=== PATIENT | male | born 1985 | race Caucasian/White ===

== ENCOUNTER 2016-08-29 17:45 | Emergency (ER) | payer SELFPAY ==
[2016-08-29] MEDS ORDERED: IBUPROFEN 800 MG TABLET PO ONE (18:06)
--- NOTE | 2016-08-29 18:06 | ER Document Report ---
ED Medical Screen (RME) - General Chief Complaint: Back Pain Stated Complaint: BACK PAIN Notes: was working on the garage this evening and hurt his back pivoting motion, denies crush injury Denies urinary incontinence to incontinence, saddle anesthesia, numbness or tingling in his feet. I have greeted and performed a rapid initial assessment of this patient. A comprehensive ED assessment and evaluation of the patient, analysis of test results and completion of the medical decision making process will be conducted by additional ED providers. TRAVEL OUTSIDE OF THE [place] IN LAST 30 DAYS: No - Related Data Allergies/Adverse Reactions: vancomycin Allergy (Verified 08/29/16 18:04) Past Medical History Past Surgical History: Reports: Hx Appendectomy Physical Exam - Vital signs Vitals: Temp Pulse Resp BP Pulse Ox 98.3 F 114 H 18 132/86 H 97 08/29/16 18:02 08/29/16 18:02 08/29/16 18:02 08/29/16 18:02 08/29/16 18:02 Course - Vital Signs Vital signs: Temp Pulse Resp BP Pulse Ox 98.3 F 114 H 18 132/86 H 97 08/29/16 18:02 08/29/16 18:02 08/29/16 18:02 08/29/16 18:02 08/29/16 18:02
--- NOTE | 2016-08-29 19:46 | ER Document Report ---
ED Neck/Back Problem - General Mode of Arrival: Ambulatory Information source: Patient TRAVEL OUTSIDE OF THE [place] IN LAST 30 DAYS: No - HPI Patient complains to provider of: Pain - Left Mid-Back Onset: This afternoon Where: Other - Garage Onset: Sudden Timing: Still present Exacerbated by: Sitting position - General Chief Complaint: Back Pain Stated Complaint: BACK PAIN Notes: Patient is a 31-year-old male presenting to the emergency department chief complaint back pain onset this afternoon when he was cleaning out his garage and threw a tire. Patient states that he felt his back crackle and pop. Patient states that it hurts to even just sit down. Patient has no other complaints. (NICOLE CHOW) - Related Data Allergies/Adverse Reactions: vancomycin Allergy (Verified 08/29/16 18:04) Past Medical History - General Information source: Patient - Social History Smoking Status: Current Every Day Smoker Cigarette use (# per day): Yes Chew tobacco use (# tins/day): No Frequency of alcohol use: Rare Drug Abuse: Marijuana Occupation: Construction Family History: Reviewed & Not Pertinent, Other - Family history of seizures Patient has suicidal ideation: No Patient has homicidal ideation: No Renal/ Medical History: Reports: Hx Kidney Stones. Denies: Hx Peritoneal Dialysis Infectious Medical History: Reports: Hx Hepatitis - Hep C Past Surgical History: Reports: Hx Appendectomy, Hx Kidney (Renal Surgery) - Cystoscopic laser Review of Systems - Review of Systems Constitutional: No symptoms reported EENT: No symptoms reported Cardiovascular: No symptoms reported Respiratory: No symptoms reported Gastrointestinal: No symptoms reported Genitourinary: No symptoms reported Male Genitourinary: No symptoms reported Musculoskeletal: See HPI, Back pain Skin: No symptoms reported Hematologic/Lymphatic: No symptoms reported Neurological/Psychological: No symptoms reported Physical Exam - General General appearance: Alert - HEENT Head: Normocephalic, Atraumatic Eyes: Normal Pupils: PERRL - Respiratory Respiratory status: No respiratory distress Breath sounds: Normal - Cardiovascular Rhythm: Regular Heart sounds: Normal auscultation Murmur: No - Abdominal Inspection: Normal - Back Back: Tender - Tenderness to palpation over left lumbar paravertebral muscles. - Extremities General upper extremity: Normal inspection General lower extremity: Normal inspection - Neurological Neuro grossly intact: Yes Cognition: Normal Emily Coma Scale Eye Opening: Spontaneous [place] Coma Scale Verbal: Oriented Emily Coma Scale Motor: Obeys Commands Emily Coma Scale Total: 15 Speech: Normal - Psychological Associated symptoms: Normal affect, Normal mood - Skin Skin Temperature: Warm Skin Moisture: Dry Skin Color: Normal - Vital signs Vitals: Temp Pulse Resp BP Pulse Ox 98.3 F 114 H 18 132/86 H 97 08/29/16 18:02 08/29/16 18:02 08/29/16 18:02 08/29/16 18:02 08/29/16 18:02 (RUDOLPH GHOSH) (NICOLE CHOW) Discharge - Discharge Clinical Impression: Acute lumbar back pain Qualifiers: Back pain laterality: left Sciatica presence: without sciatica Qualified Code(s ): M54.5 - Low back pain Additional Instructions: Low Back Pain Three out of every four people will have an episode of disabling back pain during their lifetime. Most commonly the pain is due to straining of the muscles and ligaments in the low back. Usual treatment includes: (1) Rest on a firm surface. Avoid lying on your stomach. (2) Ice pack the painful area. After a few days, gentle heat may be used intermittently to relax the area, or ice packs can be continued. (3) Medication may be needed -- muscle relaxers and antiinflammatory medicines are commonly used. (4) As the back improves, exercises are prescribed to strengthen the back and abdominal muscles. Your doctor will advise you on the proper care for your back at each stage in your recovery. You may be better in a few days -- or healing may take several weeks. If new symptoms of a "herniated disc" (radiation of pain, numbness, or tingling down the back of the leg or weakness in the leg) occur, you should be re-examined. Further testing may be necessary. TAKE MOTRIN OR ALEVE. USE ICE-PACKS TODAY. START MOIST HEAT TOMORROW. FIND A COMFORTABLE WAY TO LAY OR SIT. TAKE THE MEDICATIONS PRESCRIBED. FOLLOW UP WITH A LOCAL MEDICAL DOCTOR IF NOT IMPROVING. RETURN TO THE EMERGENCY ROOM IF ANY NEW OR WORSENING SYMPTOMS. Prescriptions: Cyclobenzaprine HCl [Flexeril 5 mg Tablet] 5 mg PO TID PRN #15 tablet PRN Reason: Oxycodone HCl/Acetaminophen [Percocet 5-325 mg Tablet] 1 - 2 tab PO ASDIR PRN # 15 tablet PRN Reason: Scribe Attestation: 08/29/16 19:49 I personally performed the services described in the documentation, reviewed and edited the documentation which was dictated to the scribe in my presence, and it accurately records my words and actions. (RUDOLPH GHOSH) Scribe Documentation - Scribe Written by Osmani:: Nicole Chow 08/29/[id number] acting as scribe for :: Heydi
[2016-08-29 21:40] VITALS: BP 124/84
== END 2016-08-29 20:36 | disposition home or self-care (01) ==
LOC: ER 17:45
DX: M54.89 Other dorsalgia (principal); F17.210 Nicotine dependence, cigarettes, uncomplicated; Z88.3 Allergy status to other anti-infective agents; Z87.442 Personal history of urinary calculi; Z86.19 Personal history of other infectious and parasitic diseases
CPT/HCPCS: 99283

== ENCOUNTER 2017-07-03 01:01 | Emergency (ER) | payer SELFPAY ==
[2017-07-03 01:18] VITALS: BP 128/77
== END 2017-07-03 02:30 | disposition left against medical advice (07) ==
LOC: ER 01:01
DX: Z53.21 Procedure and treatment not carried out due to patient leaving prior to being seen by health care provider (principal)